=== PATIENT | male | born 1955 | race African-American/Black ===

== ENCOUNTER 2019-01-05 09:46 | Outpatient (CLI) | payer OTHER ==
--- NOTE | 2019-01-05 14:52 | MRI ---
MRI OF THE RIGHT THUMB: Date: 01/05/19 PROVIDED CLINICAL HISTORY: Right thumb pain for years. FINDINGS: The thumb abductor, adductor, flexor, and extensor tendons demonstrate an intact MR appearance. There is conspicuous thumb MCP joint space loss with prominent articular cartilage loss and multifoca l subchondral cyst-like change. Periarticular osteophyte formation is noted. There is a thickened and inhomogeneous appearance to the radial and ulnar collateral ligaments of the thumb MCP joint without evidence for traumatic tear. Thumb CMC degenerative changes are mild. Regional marrow and muscular signal appears otherwise unrema rkable. IMPRESSION: Advanced first MCP degenerative change. POS: TPC
== END 2019-01-05 09:47 | disposition home or self-care (01) ==
LOC: BICMRI 09:46
PROVIDERS: ATTEND Orthopaedic Surgery Hand Surgery
DX: S63.641A Sprain of metacarpophalangeal joint of right thumb, initial encounter (principal); M19.041 Primary osteoarthritis, right hand

== ENCOUNTER 2019-12-09 04:45 | Outpatient (CLI) | payer OTHER ==
[2019-12-09 11:05] LABS: Bacteria/HPF None Seen HPF (None Seen); Bilirubin Negative (Negative); Blood, Urine Negative (Negative); Calcium Oxalate Crystals Rare HPF (None Seen); Clarity Clear (Clear); Glucose, Urine (Dipstick) Normal (Negative); Ketone, Urine Negative (Negative); Leukocyte Negative Leu/uL (Negative); Mucous/LPF 2+ LPF (<2+); Nitrite Negative (Negative); Protein, Urine (Dipstick) 10 mg/dL (Neg-Trace); RBC/HPF 0-3 HPF (0-3); Specific Gravity, Urine 1.029 (1.002-1.036); Squamous Epithelial 0-3 HPF (0-3); Urobilinogen Normal mg/dL (Less than 2); WBC/HPF 0-3 HPF (0-3); pH, Urine 5.5 (5.0-9.0)
[2019-12-09 11:14] LABS: Eosinophils 10 % (0-10); Hemoglobin 14.9 g/dL (14.0-18.0); Lymphocytes 52 % (21-51); MDiff Complete? YES; Mean Corpuscular Hemoglobin 30.3 pg (27.0-31.0); Mean Corpuscular Volume 89.1 fL (78.0-98.0); Mean Platelet Volume 9.2 fL (7.4-10.4); Monocytes 9 % (0-10); Neutrophil 29 % (42-75); Platelet Count 210 thou/uL (130-400); Platelet Morphology Comment Appears Adequate; RBC Morphology Normal; Red Blood Cell (RBC) Count 4.92 mill/uL (4.70-6.10); White Blood Cell (WBC) Count 4.2 thou/uL (4.8-10.8)
[2019-12-09 12:09] LABS: Anion Gap 15 mmol/L (10-20); BUN (Urea Nitrogen) 14 mg/dL (8.4-25.7); Calc. Creatinine Clearance 0 mL/min (70-130); Calcium 9.4 mg/dL (7.8-10.44); Carbon Dioxide 22 mmol/L (23-31); Chloride 109 mmol/L (98-107); Estimated GFR-MDRD 64; Glucose 120 mg/dL (80-115); Potassium 3.7 mmol/L (3.5-5.1); Sodium 142 mmol/L (136-145)
[2019-12-10 12:36] LABS: SARS-CoV-2 MS2 Positive; SARS-CoV-2 N Gene Negative; SARS-CoV-2 S Gene Negative; SARS-CoV-2 orf1ab Negative
--- NOTE | 2019-12-10 19:43 | EKG ---
Test Reason : Blood Pressure : / mmHG Vent. Rate : 057 BPM Atrial Rate : 057 BPM P-R Int : 182 ms QRS Dur : 104 ms QT Int : 458 ms P-R-T Axes : 027 083 -13 degrees QTc Int : 445 ms Sinus bradycardia T wave abnormality, consider inferior ischemia Abnormal ECG No previous ECGs available Confirmed by MARK ARGUELLO, DR. Patel ([id number]) on 12/10/2019 7:43:03 PM Referred By: DEBRA Confirmed By:DR. Amanda FLORES MD
== END 2019-12-09 04:46 | disposition home or self-care (01) ==
LOC: LABBT 04:45
PROVIDERS: ATTEND Orthopaedic Surgery Hand Surgery
DX: Z01.818 Encounter for other preprocedural examination (principal); Z11.59 Encounter for screening for other viral diseases; M19.041 Primary osteoarthritis, right hand; M18.12 Unilateral primary osteoarthritis of first carpometacarpal joint, left hand
CPT/HCPCS: 80048; 81001; 85025; 87635; 93005; 93010; U0003

== ENCOUNTER 2019-12-13 05:30 | Day surgery (SDC) | payer OTHER ==
[2019-12-07 11:33] VITALS: BMI 29.9
[2019-12-13] MEDS ORDERED: Bupivacaine PF 0.5% 30 ML VIAL ONE (06:18)
[2019-12-13] MEDS ORDERED: Sodium Chloride 0.9% 10 ML ONE (06:18)
[2019-12-13] MEDS ORDERED: Betamet Acet/Betamet Na Ph 30 MG/5 ML VIAL ONE (06:18)
[2019-12-13] MEDS ORDERED: Bacitracin Zinc Ointment 30 gm TUBE ONE (06:18)
[2019-12-13] MEDS ORDERED: Fentanyl 250 MCG/5 ML VIAL ONE (06:54)
[2019-12-13] MEDS ORDERED: Midazolam HCl 2 mg/2 ml Vial ONE ×2 (06:54→06:56)
[2019-12-13] MEDS ORDERED: Ketamine 50 MG/ML (10ML VIAL) ONE (07:45)
[2019-12-13] MEDS ORDERED: Ketorolac Tromethamine 30 MG/ML VIAL ONE (10:01)
[2019-12-13] MEDS ORDERED: PROPOFOL 200 MG/20 ML VIAL ONE (13:02)
[2019-12-13] MEDS ORDERED: Ondansetron PF 4 MG/2 ML Vial ONE (13:02)
[2019-12-13] MEDS ORDERED: Dexamethasone 20 MG/5 ML VIAL ONE (13:02)
[2019-12-13] MEDS ORDERED: EPHEDRINE 25 MG/5 ML SYRINGE ONE ×2 (13:02)
[2019-12-13] MEDS ORDERED: diphenhydrAMINE 50 MG/ML VIAL ONE (13:02)
--- NOTE | 2019-12-13 17:11 | OP ---
DATE OF PROCEDURE: 12/13/2019 PREOPERATIVE DIAGNOSES: 1. Right thumb metacarpophalangeal joint severe osteoarthritis. 2. Left thumb carpometacarpal joint [id number] osteoarthritis. POSTOPERATIVE DIAGNOSES: 1. Right thumb metacarpophalangeal joint severe osteoarthritis. 2. Left thumb carpometacarpal joint [id number] osteoarthritis. FINDINGS: Very large osteophytes with very large inebriated bone surface at the metacarpophalangeal joint of the right thumb. PROCEDURES PERFORMED: 1. At the left thumb: a. C-arm supervision. b. Injection 2 mL of Celestone without Marcaine or epinephrine. 2. At the right thumb: a. Arthrotomy with synovectomy. b. Arthrodesis of thumb using [id number] technique in the metacarpophalangeal joint. TOURNIQUET TIME: 90 minutes of the right. ESTIMATED BLOOD LOSS: 20 mL on the right. INJECTABLE: A total of 30 mL on the right. INDICATIONS: Osteoarthritis, could not relieve the pain with conservative nonoperative mean. DESCRIPTION OF PROCEDURE: After successful general endotracheal anesthesia, the limb was prepped and draped. The left side had injection performed under C-arm supervision. When we knew we were in the joint and we could feel the fluid, filled the joint with 2 mL Celestone. Band-Aid was placed. We then turned attention to sterilely prep the side, did a time-out again, and confirmed we were operating on the right metacarpophalangeal joint where marked osteophytes were seen. We then exsanguinated the limb, inflated tourniquet to 250 mmHg pressure, injected 20 mL along the incision line and a metacarpophalangeal joint block and then entered the joint between the extensor tendons. We opened the joint capsule, there was a marked amount of synovitis and we performed a synovectomy. At this point, we were able to separate the extensor enough to visualize the entire joint. We used osteotome to remove the gross osteophytes circumferentially. We then were able to create a shotgun effect of greater than 90 degrees of flexion and remove all osteophytes with the osteotome back to almost 95% of the total joint surface deep volar. We were then able to create a cup and cone down to where we eliminated all inebriated bone and we were in the soft subchondral bone. We then were able to angulate approximately 20 degrees of MP joint giving us overall 50% contact surface between the cup and cone configuration. We released this, irrigated, and then passed a 24-gauge wire circumferentially in a box technique dorsal enough that it would not impinge upon the screws and made the wires even for later closure. We then placed guidewires in appropriate position, so we could have at least a centimeter of screw on either side of the joint, and then we tightened the wire in about 20 degrees of flexion. We then placed two screws, used a standard drill measure screw technique across the joint and then tightened them and buried them 1 mm in the bone and they were in compressed mode with 2.4 Headless cannulated Synthes screws. We removed the guidewires. We cut the cerclage wire and buried it. Radiographs showed the final configuration. We used a small amount of putty to fill in the dorsal gapping created by the angular position of the sagittal plane. We released the tourniquet. We obtained hemostasis. We closed the remaining joint surface with a 3-0 Vicryl undyed. We ran a running 5-0 Prolene to close the interspace between the tendons, and we closed the skin with interrupted 4-0 nylon in a mattress pattern. Bulky dressing was applied along with a splint. The patient left the operating room without evidence of anesthetic or operative complication. Job ID: [id number]
--- NOTE | 2019-12-14 08:36 | RAD ---
LEFT WRIST: A single fluoroscopic view of left wrist obtained. INDICATION: Imaging during injection left thumb at CMC joint. FINDINGS/IMPRESSION: This single image shows a needle overlying the left CMC joint. POS: AGW
--- NOTE | 2019-12-14 08:37 | RAD ---
FINGERS RIGHT HAND: Two fluoroscopic images are presented. INDICATION: Imaging taken during right hand arthrodesis CP joint of thumb. FINDINGS/IMPRESSION: These 2 images reveal changes of arthrodesis at the right 1st metacarpophalangeal joint. POS: AGW
== END 2019-12-13 11:15 | disposition home or self-care (01) ==
LOC: SDC 05:30
PROVIDERS: ATTEND Orthopaedic Surgery Hand Surgery
PROC: 0RGU04Z Fusion of Right Metacarpophalangeal Joint with Internal Fixation Device, Open Approach (ICD-10-PCS; principal; 2019-12-13)
PROC: 0R9T3ZZ Drainage of Left Carpometacarpal Joint, Percutaneous Approach (ICD-10-PCS; principal; 2019-12-13)
DX: M19.041 Primary osteoarthritis, right hand (principal); M18.12 Unilateral primary osteoarthritis of first carpometacarpal joint, left hand; F17.200 Nicotine dependence, unspecified, uncomplicated; I10 Essential (primary) hypertension; E78.5 Hyperlipidemia, unspecified; G89.29 Other chronic pain; M54.9 Dorsalgia, unspecified; Z79.899 Other long term (current) drug therapy
CPT/HCPCS: 76000; C1713; J0702; J1100; J1200; J1885; J2250; J2405; J2704; J3010; J3490; S0020

== ENCOUNTER 2023-05-07 11:02 | Emergency (ER) | payer OTHER ==
[2023-05-07 11:54] LABS: #Monocytes 0.6 thou/uL (0.11-0.59); #Neutrophils 2.9 thou/uL (1.40-6.50); %Basophils 0.7 % (0.0-1.0); %Eosinophils 0.6 % (0.0-10.0); %Lymphocytes 34.5 % (21.0-51.0); %Monocytes 10.4 % (0.0-10.0); %Neutrophils 53.6 % (42.0-75.0); Hematocrit 46.8 % (42.0-52.0); Hemoglobin 16.4 g/dL (14.0-18.0); Mean Corpuscular Hemoglobin 30.5 pg (27.0-31.0); Mean Platelet Volume 10.5 fL (7.4-10.4); Platelet Count 230 10x3/uL (130-400); RBC Distribution Width 13.4 % (11.5-14.5); Red Blood Cell (RBC) Count 5.38 mill/uL (4.70-6.10); White Blood Cell (WBC) Count 5.4 10x3/uL (4.8-10.8)
[2023-05-07 12:18] LABS: ALT (SGPT) 20 U/L (8-55); AST (SGOT) 28 U/L (5-34); Albumin 4.5 g/dL (3.4-4.8); Alkaline Phosphatase 77 U/L (40-110); Anion Gap 14 mmol/L (10-20); BUN (Urea Nitrogen) 16 mg/dL (8.4-25.7); Calc. Creatinine Clearance 0 mL/min (70-130); Calcium 9.8 mg/dL (7.8-10.44); Carbon Dioxide 29 mmol/L (23-31); Chloride 100 mmol/L (98-107); Estimated GFR 55; Globulin 3.2 g/dL (2.4-3.5); Glucose 104 mg/dL (80-115); Lipase 12 U/L (8-78); Potassium 4.2 mmol/L (3.5-5.1); Protein, Total 7.7 g/dL (5.8-8.1); Sodium 139 mmol/L (136-145)
[2023-05-07 12:23] LABS: SARS-CoV-2 NAA Rapid Test Not Detected (NotDetected)
[2023-05-07 12:36] LABS: Bacteria/HPF None Seen HPF (None Seen); Bilirubin Negative (Negative); Blood, Urine Trace (Negative); CAUTI Indications for Culture Dysuria,urgency,freq; Clarity Clear (Clear); Glucose, Urine (Dipstick) Normal (Negative); Ketone, Urine Negative (Negative); Leukocyte Negative Leu/uL (Negative); Nitrite Negative (Negative); Protein, Urine (Dipstick) Negative (Neg-Trace); RBC/HPF 0-3 HPF (0-3); Specific Gravity, Urine 1.037 (1.002-1.036); Squamous Epithelial None Seen HPF (0-3); Urobilinogen Normal mg/dL (Less than 2); WBC/HPF 0-3 HPF (0-3); pH, Urine 6.5 (5.0-9.0)
[2023-05-07 12:44] LABS: Urine Culture Reflex No No
[2023-05-07] MEDS ORDERED: Iopamidol-370 76% 500 ML MDV (1 ML CHARGE) ONE (12:57)
[2023-05-07] MEDS ORDERED: Famotidine/PF 20 mg/2ml Vial ONE (13:18)
[2023-05-07] MEDS ORDERED: Ondansetron PF 4 MG/2 ML Vial ONE (13:18)
== END 2023-05-07 14:20 | disposition home or self-care (01) ==
LOC: ERS 11:02
DX: K21.9 Gastro-esophageal reflux disease without esophagitis (principal); I10 Essential (primary) hypertension; F17.210 Nicotine dependence, cigarettes, uncomplicated; Z79.899 Other long term (current) drug therapy; Z20.822 Contact with and (suspected) exposure to COVID-19
CPT/HCPCS: 0240U; 74177; 80053; 81001; 83690; 85025; 96374; 96375; J2405; Q9967; S0028

== ENCOUNTER 2024-03-07 18:18 | Emergency (ER) | payer OTHER, MEDICAID ==
[~2024-03-07 18:18] MED LIST: Iopamidol-370 76% 500 ML MDV (1 ML CHARGE) ONE
[2024-03-07] MEDS ORDERED: Ondansetron PF 4 MG/2 ML Vial ONE (19:28)
[2024-03-07 19:32] LABS: #Basophils 0.03 10x3/uL (0.0-0.2); %Basophils 0.5 % (0.0-1.0); %Eosinophils 0.5 % (0.0-10.0); %Lymphocytes 27.1 % (21.0-51.0); %Monocytes 7.6 % (0.0-10.0); %Neutrophils 64.1 % (42.0-75.0); Hematocrit 47.1 % (42.0-52.0); Hemoglobin 16.4 g/dL (14.0-18.0); Mean Corpuscular HGB CONC 34.8 g/dL (32.0-36.0); Mean Corpuscular Hemoglobin 30.7 pg (27.0-31.0); Mean Platelet Volume 10.1 fL (7.4-10.4); Platelet Count 202 10x3/uL (130-400); RBC Distribution Width 13.4 % (11.5-14.5); Red Blood Cell (RBC) Count 5.35 mill/uL (4.70-6.10)
[2024-03-07 19:56] LABS: ALT (SGPT) 16 U/L (8-55); AST (SGOT) 19 U/L (5-34); Albumin 4.4 g/dL (3.4-4.8); Alkaline Phosphatase 93 U/L (40-110); Anion Gap 16 mmol/L (10-20); BUN (Urea Nitrogen) 12 mg/dL (8.4-25.7); Bilirubin, Total 0.7 mg/dL (0.2-1.2); Calc. Creatinine Clearance 0 mL/min (70-130); Calcium 10.3 mg/dL (7.8-10.44); Carbon Dioxide 27 mmol/L (23-31); Chloride 105 mmol/L (98-107); Estimated GFR 61; Globulin 3.7 g/dL (2.4-3.5); Glucose 119 mg/dL (80-115); Lipase 12 U/L (8-78); Potassium 3.6 mmol/L (3.5-5.1); Protein, Total 8.1 g/dL (5.8-8.1); Sodium 144 mmol/L (136-145)
[2024-03-07] MEDS ORDERED: Mag-Al 1200 mg/1200 mg/30 ML UDCUP ONE (20:28)
[2024-03-07] MEDS ORDERED: Lidocaine Viscous Sol 2% 15 ml UD Cup ONE (20:28)
== END 2024-03-07 22:36 | disposition home or self-care (01) ==
LOC: ERS 18:18
DX: R11.2 Nausea with vomiting, unspecified (principal); R10.84 Generalized abdominal pain; F17.210 Nicotine dependence, cigarettes, uncomplicated; I10 Essential (primary) hypertension; Z95.0 Presence of cardiac pacemaker
CPT/HCPCS: 74177; 80053; 83690; 85025; 96361; 96374; 99284; J2405; Q9967

== ENCOUNTER 2024-03-08 08:42 | Emergency (ER) | payer OTHER, MEDICAID ==
[2024-03-08] MEDS ORDERED: Promethazine 25 MG TAB ONE (10:09)
[2024-03-08] MEDS ORDERED: Mag-Al 1200 mg/1200 mg/30 ML UDCUP ONE (10:09)
[2024-03-08] MEDS ORDERED: Lidocaine Viscous Sol 2% 15 ml UD Cup ONE (10:09)
[2024-03-08 10:22] LABS: #Basophils Less than 0.03 10x3/uL (0.0-0.2); #Eosinophils Less than 0.03 10x3/uL (0.0-0.7); %Basophils 0.3 % (0.0-1.0); %Lymphocytes 17.1 % (21.0-51.0); %Monocytes 8.7 % (0.0-10.0); %Neutrophils 73.6 % (42.0-75.0); Hemoglobin 15.4 g/dL (14.0-18.0); Mean Corpuscular HGB CONC 35.8 g/dL (32.0-36.0); Mean Corpuscular Hemoglobin 30.9 pg (27.0-31.0); Mean Corpuscular Volume 86.3 fL (78.0-98.0); Mean Platelet Volume 10.6 fL (7.4-10.4); Platelet Count 198 10x3/uL (130-400); RBC Distribution Width 13.4 % (11.5-14.5); Red Blood Cell (RBC) Count 4.98 mill/uL (4.70-6.10)
[2024-03-08 10:39] LABS: ALT (SGPT) 13 U/L (8-55); AST (SGOT) 18 U/L (5-34); Albumin 3.9 g/dL (3.4-4.8); Alkaline Phosphatase 75 U/L (40-110); Anion Gap 13 mmol/L (10-20); BUN (Urea Nitrogen) 14 mg/dL (8.4-25.7); Bilirubin, Total 0.6 mg/dL (0.2-1.2); Calc. Creatinine Clearance 0 mL/min (70-130); Calcium 9.4 mg/dL (7.8-10.44); Carbon Dioxide 25 mmol/L (23-31); Chloride 108 mmol/L (98-107); Estimated GFR 68; Globulin 3.4 g/dL (2.4-3.5); Glucose 125 mg/dL (80-115); Lipase 10 U/L (8-78); Potassium 3.7 mmol/L (3.5-5.1); Protein, Total 7.3 g/dL (5.8-8.1); Sodium 142 mmol/L (136-145)
[2024-03-08 10:45] LABS: Troponin I Less than 0.010 ng/mL (< 0.028)
== END 2024-03-08 11:58 | disposition home or self-care (01) ==
LOC: ERS 08:42
DX: R10.13 Epigastric pain (principal); I10 Essential (primary) hypertension; Z87.891 Personal history of nicotine dependence
CPT/HCPCS: 36415; 71045; 80053; 83690; 84484; 85025; 93005; Q0169

== ENCOUNTER 2024-07-01 07:11 | Outpatient (CLI) | payer OTHER, MEDICAID | END 2024-07-01 07:12 | disposition home or self-care (01) | LOC: BICULT 07:11 | PROVIDERS: ATTEND Family Medicine | DX: Z13.6 Encounter for screening for cardiovascular disorders (principal); I71.9 Aortic aneurysm of unspecified site, without rupture | CPT/HCPCS: 76775 ==